=== PATIENT | male | born 1985 | race African-American/Black ===

== ENCOUNTER 2016-08-30 23:23 | Emergency (ER) | payer MEDICAID, OTHER ==
[~2016-08-30] VITALS: Ht 172.7 cm; Wt 72.0 kg
[2016-08-30] MEDS ORDERED: LIDOCAINE HCL 1% 20ML VIAL (Pyxis) INJ MC ONE (23:45)
[2016-08-30] MEDS ORDERED: ACETAMINOPHEN WITH CODEINE 300/30MG TABLET PO ONE (23:45)
[2016-08-30 23:51] VITALS: BP 122/70
== END 2016-08-31 00:30 | disposition home or self-care (01) ==
LOC: ER 23:24
DX: L02.414 Cutaneous abscess of left upper limb (principal); F12.10 Cannabis abuse, uncomplicated; J45.909 Unspecified asthma, uncomplicated; Z87.891 Personal history of nicotine dependence
CPT/HCPCS: 10060; 99283; J3490; Z7610